=== PATIENT | male | born 1960 | race Caucasian/White ===

== ENCOUNTER 2022-09-08 20:49 | Emergency (ER) | payer OTHER, SELFPAY ==
[2022-09-08 20:51] VITALS: BP 139/82; PULSE 51; RESP 18; TEMP 36.6; O2SAT 99; BMI 25.7
--- NOTE | 2022-09-08 21:13 | EKG12_ITS ---
Test Reason : DYSRHYTHMIA Blood Pressure : / mmHG Vent. Rate : 061 BPM Atrial Rate : 061 BPM P-R Int : 170 ms QRS Dur : 092 ms QT Int : 430 ms P-R-T Axes : 058 -23 027 degrees QTc Int : 432 ms Normal sinus rhythm Normal ECG Confirmed by BRAD CORDOBA, ALEN ([id number]), senior technical editor MARIBELL RASMUSSEN ([id number]) on 09/11/2022 11:51:46 AM Referred By: Mik Castorena Confirmed By:ALEN SALINAS MD
--- NOTE | 2022-09-08 21:15 | EX.ED.DYSGE1 ---
HPI History of Present Illness Chief Complaint: Dizziness Informant: patient and spouse/S.O. Narrative Narrative: Patient had an episode at a restaurant where he got very lightheaded. He is feeling better now but not completely back to normal. Patient states he felt well when he went there. He ate a pretty large meal of hamburger and tater tots. He states it feels kind of heavy in his stomach but is not painful. He has no reflux. No nausea or vomiting. He did feel mildly nauseated at the restaurant. He was not feeling right so he got up and was can go to the bathroom. He decided to stop and go lay down in a mason. He does not think he lost consciousness but it is possible. He was not vertiginous. He did not have any visual loss. No focal weakness or numbness. He did get a little bit clammy. He does state that he feels a little dehydrated today. He was going to be drinking more water but just never got around to it. Patient has a history of high blood pressure on amlodipine and high cholesterol. No heart disease. He has had some missed heartbeats in the past but he did not feel any of those tonight. He did have a blood pressure in the upper 90s once by EMS but it is better now. He had a had a heart rate of 51 when he arrived here but he is now about 65. It does appear to be sinus. He is last travel was just locally in [place] and then up to [place]. The longest trip was about 2-1/2 hours. He has no history of DVT or PE. No family history of that. No heart disease in him or the family. He is a non-smoker. He never had chest pain pressure palpitations back pain neck pain head pain or discomfort anywhere. He has not had black or bloody stools. He has not been feeling ill or febrile. [facility] Home Medications atorvastatin 10 mg tablet 10 mg PO QHS 10/26/16 [History Last Taken Unknown] amlodipine 5 mg tablet 5 mg PO DAILY 09/08/22 [History Last Taken Unknown] Allergy/AdvReac Type Severity Reaction Status Date / Time No Known Allergies Allergy Verified 10/26/16 18:47 Social History Smoking Status: Never smoker ROS ROS ED Constitutional Constitutional ED: Denies chills, fever(s) or subjective Eyes Eyes: Denies change in vision ENT ENT ED: Denies rhinorrhea or sore throat Cardiovascular Cardiovascular: Denies chest pain, palpitations or racing heartbeat Respiratory/Chest Respiratory/Chest: Denies cough or dyspnea Gastrointestinal Gastrointestinal: Reports nausea; Denies abdominal pain, diarrhea or vomiting Genitourinary Genitourinary ED: Denies dysuria Musculoskeletal Musculoskeletal: Denies arthralgias or myalgias Integumentary Denies rash Neurologic Neurologic: Denies headache(s), paresthesias or weakness Psychiatric Psychiatric: Denies anxiety Endocrine Endocrinology: Denies polydipsia or polyuria Hematologic/Lymphatic Hematologic/Lymphatic: Denies easy bleeding or easy bruising Allergic/Immunologic Allergic/Immunologic ED: Denies urticaria EXAM Physical Exam Const Vital Signs: 09/08/22 20:51 09/08/22 20:56 09/08/22 22:39 Temperature 97.8 F Temperature Source Temporal Pulse Rate 51 L 64 Respiratory Rate 18 18 Respiratory Effort Normal Non-Labored Respiratory Pattern Normal Blood Pressure 139/82 H 132/84 H Blood Pressure Mean 101 100 Pulse Ox 99 98 Oxygen Delivery Method Room Air Room Air Positive well nourished and well developed General Appearance ED: well developed and NAD; Negative for cyanotic, diaphoretic or pallor HEENT Reports dry mucous membranes Mouth ED: Yes dry mucous membranes Mouth: dry mucous membranes Eyes PERRL and EOMs intact bilaterally Eyes Narrative: No change in symptoms with moving head right or left. Pupillary function is normal. Range of motion of the eyes is normal. Neck supple and no JVD Chest Wall inspection of chest normal and palpation of chest normal Resp normal respiratory effort and clear to auscultation bilaterally Resp Narrative: No pain with a deep breath Effort and Inspection: Negative for pain with movement Cardio regular rate and regular rhythm Rate: other Other Details: At this time the patient's heart rate is normal. It is regular. On the monitor shows a normal sinus rhythm with a rate of about 65. I am not seeing the room. GI normal to inspection, nondistended, normoactive bowel sounds, non-tender and non-distended GI Narrative: Abdomen has normal bowel sounds soft nondistended. No hyperactive bowel sounds. Auscultation: normoactive bowel sounds; Negative for hyperactive bowel sounds or hypoactive bowel sounds Palpation: soft; Negative for tender Narrative: No CVA tenderness Back/Spine no CVA tenderness Extremity normal to inspection Extremity Narrative: No edema cords tenderness or asymmetry. Pulses are normal x4. General Extremety ED: Negative for edema or tenderness General Extremity: Negative for edema Neuro oriented x3 Neuro Narrative: Patient awake alert oriented x3. Good informant for the event and past history. No focal deficit. NIH is 0 Psych mental status grossly normal Skin no rashes or lesions noted Skin Narrative: No pallor. No diaphoresis at this time. General Skin Exam: Negative for jaundice or pallor MDM MDM MDM Narrative Medical decision making narrative: Patient was rechecked. He is asymptomatic now. He feels very well. He has no nausea. He is sitting upright. He has been moving around. He feels completely back to normal. My independent interpretation of the patient's AP chest x-ray shows no acute process. This was 2 images because the first images cut the bases off just a small amount. There is no cardiomegaly. No pneumothorax. No infiltrate or other acute process. Final reading by radiology was also reviewed and is normal. I reviewed his blood work that was ordered here. His CBC is completely normal. Electrolytes show minimal decreased potassium at 3.3 but this should self correct. Because he had had some mild nausea I did not give him oral potassium with this. Slightly high BUN but any mild dehydration was treated with some IV fluids. Alcohol level was only 22. It was expected that this would be relatively low. Troponin was quite low at 6. Lactate was normal at 1.7. With the patient's age and lightheadedness and presentation shortly after event, I will do a delta troponin. As long as this is okay I think he can go home. He did not have chest pain. His symptoms of lightheadedness are completely resolved. Patient is turned over to the oncoming physician pending repeat troponin. If this shows a significant increase he may need further testing but at this point as long as his troponin is good I think he can go home. Lab Data Attestation: I reviewed the patient's lab results. Labs: Laboratory Results - last 24 hr 09/08/22 09/08/22 09/08/22 21:24 21:24 21:24 WBC 7.1 RBC 4.36 L Hgb 13.9 Hct 39.7 L MCV 91.1 MCH 31.9 MCHC 35.0 RDW Std Deviation 40.6 RDW Coeff of Hedy 12.2 Plt Count 344 MPV 9.9 Immature Gran % (Auto) 0.300 Neut % (Auto) 57.4 Lymph % (Auto) 31.9 [place] % (Auto) 7.0 Eos % (Auto) 3.1 Baso % (Auto) 0.3 Absolute Neuts (auto) 4.1 Absolute Lymphs (auto) 2.27 Nucleated RBC % 0 Sodium 139 Potassium 3.3 L Chloride 106 Carbon Dioxide 26.0 Anion Gap 7 BUN 22 H Creatinine 1.19 Estim Creat Clear Calc 65.60 Est GFR (MDRD) Af Amer 79 Est GFR (MDRD) Non-Af 66 BUN/Creatinine Ratio 18.5 Glucose 115 H Lactic Acid Calcium 8.8 Troponin I High Sens 6 Ethyl Alcohol 22.0 09/08/22 21:24 WBC RBC Hgb Hct MCV MCH MCHC RDW Std Deviation RDW Coeff of Hedy Plt Count MPV Immature Gran % (Auto) Neut % (Auto) Lymph % (Auto) [place] % (Auto) Eos % (Auto) Baso % (Auto) Absolute Neuts (auto) Absolute Lymphs (auto) Nucleated RBC % Sodium Potassium Chloride Carbon Dioxide Anion Gap BUN Creatinine Estim Creat Clear Calc Est GFR (MDRD) Af Amer Est GFR (MDRD) Non-Af BUN/Creatinine Ratio Glucose Lactic Acid 1.7 Calcium Troponin I High Sens Ethyl Alcohol Radiography Diagnostic Testing: Clinical Impression(s) from Imaging Studies Chest X-Ray 09/08/22 21:29 IMPRESSION: No radiographic evidence of acute cardiopulmonary disease. Electronically Signed: Niko Figueroa MD at 22:08 EST , EKG Initial EKG: Comments: My independent interpretation of his EKG done for near syncope shows normal sinus rhythm with overall rate of 61. No ventricular ectopy. No acute ST elevation or depression. CT interval, QRS duration and QTC are normal Discharge Plan Triage Chief Complaint: Dizziness ED Provider: Mik Castorena Dx/Rx/DC Orders Clinical Impression: Near syncope Instructions: ED Near-Fainting, Uncertain Cause Prescriptions: No Action atorvastatin 10 MG tablet 10 mg PO QHS amlodipine 5 mg tablet 5 mg PO DAILY Label Comments: take 1 tablet by mouth once daily Primary Care Provider: Teo San Referrals: Teo San MD [Primary Care Provider] - 3-5 Days Disposition Disposition: Home, Self Care
[2022-09-08] MEDS: Ondansetron 4 MG/2 ML Vial IV (21:22)
[2022-09-08] MEDS: 0.9% Normal Saline 1,000 ML 1000 ML IV (21:23)
--- NOTE | 2022-09-08 21:29 | RAD_ITS ---
INDICATION: Sudden onset dizziness, sweating and nausea EXAMINATION/TECHNIQUE: X-RAY - portable upright AP chest x-ray COMPARISON: None. FINDINGS: LINES/DEVICES: None. LUNGS: No consolidation, edema or effusion. No pneumothorax. MEDIASTINUM AND CARDIOVASCULAR STRUCTURES: Cardiac silhouette not enlarged. Central airways and mediastinal contour are unremarkable. BONES AND SOFT TISSUES: Unremarkable. RAD/Chest 1 View (Portable) IMPRESSION: No radiographic evidence of acute cardiopulmonary disease. Electronically Signed: Niko Figueroa MD at 22:08 EST ,
[2022-09-08 21:34] LABS: Absolute Lymphocyte Count 2.27 X10^3/uL (0.83-4.51); Absolute Neutrophil Count 4.1 X10^3/uL (2.0-7.7); Basophil# 0.02 X10^3/uL; Basophil% 0.3 % (0-1); Eosinophil# 0.22 X10^3/uL; Eosinophils% 3.1 % (0-5); Hematocrit 39.7 % (40-54); Hemoglobin 13.9 g/dL (13.0-16.5); Lymphocyte # 2.27 X10^3/ul (0.83-4.51); Lymphocyte % 31.9 % (19-41); Mean Corpuscular Hgb 31.9 pg (27.0-32.0); Mean Corpuscular Volume 91.1 fL (80-94); Mean Platelet Vol. 9.9 fl (6.2-12.0); NRBC Flagged by Analyzer 0 % (0-5); Neutrophil # 4.09 X10^3/uL (2.7-7.7); Neutrophil % 57.4 % (47-70); Platelet Count 344 K/mm3 (150-450); RBC Distribution Width CV 12.2 % (11.6-14.6); RBC Distribution Width SD 40.6 fl (35.1-43.9); Red Blood Count 4.36 M/mm3 (4.6-6.2); White Blood Count 7.1 K/mm3 (4.4-11.0)
[2022-09-08 21:55] LABS: Anion Gap 7 (5-15); BUN 22 mg/dL (7-18); BUN/Creat Ratio 18.5 RATIO (10-20); Calcium,Total 8.8 mg/dL (8.5-10.1); Chloride 106 mmol/L (98-107); Creatinine, Serum 1.19 mg/dL (0.70-1.30); EST Glomerular Filtration Rate 66 mL/min (>60); Est Glom Filt Rate - Afr Amer 79 mL/min (>60); Glucose 115 mg/dL (74-106); Potassium 3.3 mmol/L (3.5-5.1); Sodium Level 139 mmol/L (136-145); Troponin-I HS (w/2H Reflex) 6 pg/mL (3.0-78.0)
[2022-09-08 21:59] LABS: Lactic Acid 1.7 mmol/L (0.4-1.9)
[2022-09-08 22:39] VITALS: BP 132/84; PULSE 64; RESP 18; O2SAT 98
[2022-09-08 23:31] LABS: Reflex Troponin-HS? (from REC) Y
[2022-09-08 23:34] VITALS: PULSE 71; RESP 18; O2SAT 100
[2022-09-08 23:54] LABS: Troponin-I HS 7 pg/mL (3.0-78.0)
[2022-09-09 00:25] VITALS: BP 124/65; PULSE 70; RESP 18; O2SAT 100
== END 2022-09-09 00:25 | disposition home or self-care (01) ==
PROVIDERS: Emergency Provider Emergency Medicine; PCP Internal Medicine; Referring Provider Emergency Medicine; Visit Provider Emergency Medicine
DX: R55 Syncope and collapse (principal); R42 Dizziness and giddiness; E78.00 Pure hypercholesterolemia, unspecified; I10 Essential (primary) hypertension
CPT/HCPCS: 71045; 80048; 82077; 83605; 84484; 85025; 93005; 99285; J7030; A4216; J2405

== ENCOUNTER → 2023-02-05 | Outpatient (CLI) | payer OTHER, SELFPAY ==
--- NOTE | 2023-02-05 08:09 | ECHOD_ITS ---
Reason For Study: HTN Procedure This was a 2D Doppler, Color Flow transthoracic echocardiogram. Exam performed in department. Left Ventricle Normal left ventricle. Left ventricular systolic function is normal. The estimated ejection fraction is 60 %. Stage 1 diastolic dysfunction. No regional wall motion abnormalities noted. Right Ventricle Normal RV size. Normal systolic function. Atria Normal left atrium. Normal right atrium. Mitral Valve Normal mitral valve. Tricuspid Valve Normal tricuspid valve. Mild tricuspid valve insufficiency. Pulmonary artery systolic pressure is 32 mmHg. Aortic Valve Normal aortic valve. Trisinus/trileaflet aortic valve. Pulmonic Valve Normal pulmonic valve. Great Vessels Normal aortic root. The pulmonary artery is normal size. Normal inferior vena cava. Pericardium/Pleural No pericardial effusion. MMode/2D Measurements & Calculations LVIDd: 5.1 cm IVSd: 0.82 cm Ao root diam: 3.4 cm LVIDs: 3.1 cm LVPWd: 0.85 cm LA dimension: 3.5 cm RVDd: 3.7 cm FS: 38.9 % LAV(MOD-bp): 40.9 ml LVAd ap4: 29.3 cm2 SV(MOD-sp4): 50.7 ml LAV(MOD-bp) Indexed: 21.0 ml/m2 LVLd ap4: 7.4 cm LAV(MOD-sp2): 37.3 ml EDV(MOD-sp4): 92.4 ml LAV(MOD-sp4): 40.5 ml EDV(sp4-el): 98.4 ml LVAs ap4: 18.3 cm2 LVLs ap4: 6.6 cm ESV(MOD-sp4): 41.6 ml ESV(sp4-el): 43.2 ml EF(MOD-sp4): 54.9 % EF(sp4-el): 56.1 % SV(sp4-el): 55.2 ml LA A4 area: 15.8 cm2 RA A4 area: 14.8 cm2 Time Measurements MV dec time: 0.22 sec Doppler Measurements & Calculations MV E max davi: 68.3 cm/sec Lat Peak E' Davi: 10.9 cm/sec Med Peak E' Davi: 7.5 cm/sec MV A max davi: 77.1 cm/sec E/E' lat: 6.3 E/E' med: 9.1 MV E/A: 0.89 MV V2 max: 83.0 cm/sec MV P1/2t max davi: 80.3 cm/sec Ao V2 max: 145.6 cm/sec MV max P.8 mmHg MV P1/2t: 73.4 msec Ao max P.5 mmHg MV V2 mean: 41.5 cm/sec Ao V2 mean: 93.3 cm/sec MV mean P.87 mmHg MV dec slope: 320.4 cm/sec2 Ao mean P.2 mmHg MV V2 VTI: 31.9 cm MVA(P1/2t): 3.0 cm2 Ao V2 VTI: 33.7 cm AV (velocity ratio): 0.81 LV V1 max: 121.9 cm/sec MR max davi: 546.3 cm/sec PA V2 max: 87.2 cm/sec LV V1 max P.9 mmHg MR max P.4 mmHg PA V2 mean: 60.1 cm/sec LV V1 mean P.8 mmHg MR mean davi: 449.0 cm/sec LV V1 mean: 76.1 cm/sec MR mean P.7 mmHg LV V1 VTI: 27.4 cm MR VTI: 203.7 cm TR max davi: 267.6 cm/sec TR max P.6 mmHg ECHO/Echo Complete Interpretation Summary Normal left ventricle. Left ventricular systolic function is normal. The estimated ejection fraction is 60 %. Stage 1 diastolic dysfunction. Ordering Physician: Howie Silvestre Referring Physician: Teo San M.D. Performed By: Andres Hunter RCS
== END | disposition home or self-care (01) ==
LOC: CVS 08:08
PROVIDERS: PCP Internal Medicine; Referring Provider Internal Medicine Cardiovascular Disease; Visit Provider Internal Medicine Cardiovascular Disease
DX: R55 Syncope and collapse (principal); F43.9 Reaction to severe stress, unspecified; E78.2 Mixed hyperlipidemia; I10 Essential (primary) hypertension
CPT/HCPCS: 93225; 93226; 93306